=== PATIENT | male | born 1955 | race Caucasian/White ===

== ENCOUNTER 2016-12-03 12:49 | Emergency (ER) | payer BC ==
--- NOTE | ~2016-12-03 | ER ---
PATIENT'S NAME: [facility] AGE: 61 Y [address] ROOM: [place] [address] LOCATION: ED ADMIT DATE: 12/03/2016 ER/Outpatient Report DISCHARGE DATE: 12/03/2016 FAMILY PHYSICIAN: Daryl Cristobal MD ATTENDING PHYSICIAN: Braden Sweeney TIME OF ARRIVAL: 1300 hours. TIME OF EXAM: 1308 hours. CHIEF COMPLAINT: Blood pressure check. HISTORY OF PRESENT ILLNESS: The patient states approximately 10 days ago, he was prescribed a blood pressure pill by Dr. Daryl Cristobal, his primary provider, but he did not get it fill. He states that it was a new medication that required a coupon, and he is working with the pharmacy and has not been able to get it. He believes the blood pressure pill is called Bystolic, but he does not know for sure. He states that he started himself on a baby aspirin every day. Yesterday, he did notice some left arm tingling and left facial tingling. His blood pressure was high. He states he was working at the [employer] when that occurred. He did not get it evaluated. This morning at home, his blood pressure was 180/100. He checked it again at approximately 10 o'clock, it was 137/73, and then at 11 o'clock, it was 173/87. He denies having any chest pain at this time. He has not felt dizzy or lightheaded. He states his left arm does feel heavy at times. He has not had a headache. He has not had any facial drooping that he is aware of. He has not had a cough, congestion, has not been nauseated or vomiting. No fever. ALLERGIES: SULFA. CURRENT MEDICATIONS: On his chart and reviewed by me. PAST MEDICAL HISTORY: Hypertension, depression, and elevated cholesterol. PAST SURGICAL HISTORY: He has had carpal tunnel to both wrists. He has had some bones removed from his left hand. He has had throat surgery. PATIENT'S NAME: [facility] AGE: 61 Y [address] ROOM: [place] [address] LOCATION: ED ADMIT DATE: 12/03/2016 ER/Outpatient Report DISCHARGE DATE: 12/03/2016 FAMILY PHYSICIAN: Daryl Cristobal MD ATTENDING PHYSICIAN: Braden Sweeney SOCIAL HISTORY: He denies use of tobacco, drugs, or alcohol. He presents to the ER accompanied by his and granddaughter. REVIEW OF SYSTEMS: All negative other than those mentioned in the HPI. PHYSICAL EXAMINATION: VITAL SIGNS: He weighed 99.8 kg. Blood pressure is 160/103, pulses 70, respirations 16, temperature of 98.7, and O2 saturation is 95% on room air. GENERAL: He is awake, alert, and oriented x4. SKIN: [place], warm, and dry. RESPIRATIONS: Even and nonlabored. HEENT: Pupils are equal and reactive to light. Extraocular movement is intact. Negative nystagmus. Oropharynx is clear. NECK: Supple. No lymphadenopathy. LUNGS: Lung sounds are clear throughout. HEART: Regular rate and rhythm. ABDOMEN: Soft and nondistended. Bowel sounds are present. MUSCULOSKELETAL: He walks with a steady even gait. No peripheral edema noted. NEUROLOGIC: Cranial nerves 2 through 12 are grossly intact. DIAGNOSTIC DATA: EKG was completed. It shows a sinus rhythm, sinus stuart, at a rate of 59. CBC is within normal limits. Chem Panel: Sodium is 142, potassium is 4, chloride of 110, and BUN 16 with creatinine of 1. GFR is greater than 60. Cardiac enzymes are negative. His vital signs remained stable. His blood pressure did come down. Last was 148/95, pulse continued to be a right at 60. He is awake and alert, no change in his symptoms. We did do CT of his head and it was negative. IMPRESSION: Elevated blood pressure. PLAN: Discussed with patient the importance of starting the Bystolic as soon as possible. He needed to contact his pharmacy to discuss some medicine and coupon or talk with Dr. Daryl Cristobal in the a.m. regarding using the different medication. The patient and his verbalized understanding. PATIENT'S NAME: [facility] AGE: 61 Y [address] ROOM: [place] [address] LOCATION: [facility] ADMIT DATE: 12/03/2016 ER/Outpatient Report DISCHARGE DATE: 12/03/2016 FAMILY PHYSICIAN: Daryl Cristobal MD ATTENDING PHYSICIAN: Braden Sweeney APRN FOR DO ADRIANA STERN/lcyde /[id number] d: 12/03/16 1858 t: 12/07/16 0659, OUTPATIENT REPORT
[2016-12-03 13:45] LABS: EOSINOPHIL # 0.1 K/uL (0.0-0.5); EOSINOPHIL % 2.9 %; HEMATOCRIT 45.6 % (37.0-53.0); HEMOGLOBIN 15.4 g/dL (11.0-16.0); IMMATURE GRANULOCYTE % 0.2 %; LYMPHOCYTE # 1.4 K/uL (0.8-4.0); LYMPHOCYTE % 33.3 %; MCHC 33.8 gm/dL (32.0-36.5); MCV 91.8 fl (83.0-98.0); MONOCYTE # 0.4 K/uL (0.0-1.0); MPV 10.2 fl (9.4-12.4); NEUTROPHIL # (ANC) 2.2 K/uL (1.4-9.0); NEUTROPHIL % 52.6 %; NRBC % 0 /100WBC (0-0.00); PLATELET COUNT 201 K/uL (150-450); RBC 4.97 M/uL (3.50-5.50); RDW-CV 12.3 % (11.9-14.6); WBC 4.1 K/uL (4.0-11.0)
[2016-12-03 13:56] LABS: INR - (THERAPEUTIC) 1.03 (0.92-1.07); PROTIME 10.8 SECONDS (9.8-11.4); PTT 29 SECONDS (25-32)
[2016-12-03 14:05] LABS: ALBUMIN 3.8 gm/dL (3.5-5.0); ALK PHOS 57 IU/L (33-138); ALT 55 IU/L (12-78); AST 38 IU/L (10-40); BLOOD UREA NITROGEN 16 mg/dL (6-24); CALCIUM 8.1 mg/dL (8.5-10.5); CHLORIDE 110 mMol/L (96-110); CO2 25 mMol/L (22-32); CPK 214 IU/L (35-332); ESTIMATED GFR (MDRD EQUATION) > 60; SODIUM 142 mMol/L (135-145); TOTAL BILIRUBIN 0.5 mg/dL (0.0-1.5); TOTAL PROTEIN 7.5 g/dL (6.0-8.4)
== END 2016-12-03 14:55 | disposition disaster alternative care site (69) ==
LOC: GMED 12:49
PROVIDERS: Nurse Practitioner Family
DX: I10 Essential (primary) hypertension (principal); F32.9 Major depressive disorder, single episode, unspecified; E78.00 Pure hypercholesterolemia, unspecified; Z88.2 Allergy status to sulfonamides; Z79.899 Other long term (current) drug therapy; Z98.890 Other specified postprocedural states; Z86.69 Personal history of other diseases of the nervous system and sense organs; Z79.82 Long term (current) use of aspirin